=== PATIENT | female | born 1970 | race African-American/Black ===

== ENCOUNTER → 2016-09-09 | Day surgery (SDC) | payer OTHER ==
[~2016-09-09] MED LIST: ALPR2TAB5 PO; CETI10TA16 PO; FENTANYL PF 100 MCG/2 ML VIAL. IV PRN; HALO10TA PO; HYDR25CA75 PO; HYDR25TA9 PO; HYDROMORPHONE 2 MG/ML VIAL. IV PRN; IV RINGERS,LACTATED 1000ML 1,000 ML IV SCH; LIDOCAINE 1% 1 ML SYRINGE. ID PRN; MORPHINE SULFATE 2 MG/ML DISP.SYRIN. IV PRN; ONDANSETRON PF 4 MG/2 ML VIAL. IV PRN; PROCHLORPERAZINE 10 MG/2 ML VIAL. IV PRN; PROPOFOL 40 ML IV ONE
--- NOTE | 2016-09-09 10:24 | PDOC1 ---
History and Physical Date of Admission Date of Admission DATE: 09/09/16 TIME: 10:15 Source Source: Chart review, Patient History of Present Illness History of Present Illness 46 y/o female with dyspepsia. H/o H.pylori, treated x 2 with less than triple therapy. On PPI, only recently taking optimally. Degree of reflux issues not known, though 'scoped x 2 in the past. No PUD ever documented. S/p makenzie for stones. No liver or pancreatic history. Long-standing constipation. Currently on Amitiza. 2 colonoscopies in past historically negative. No GI family history. Past Medical History Cardiovascular: HTN Psych: Depression Past Surgical History Past Surgical History: Cholecystectomy, Tubal Ligation, Hysterectomy Family History Family History: Hypertension Social History Smoke: 1 pack per day ALCOHOL: none Drugs: None Current Medications Current Medications Current Medications Ondansetron HCl (Zofran) 4 mg PRN Q6HRS PRN IV Nausea; Start 09/09/16 at 07:00 ; Stop 09/10/16 at 06:59 Fentanyl Citrate (Fentanyl 2ml Vial) 25 mcg PRN Q5MIN PRN IV MILD PAIN; Start 09/09/16 at 07:00; Stop 09/10/16 at 06:59 Fentanyl Citrate (Fentanyl 2ml Vial) 50 mcg PRN Q5MIN PRN IV MODERATE PAIN; Start 09/09/16 at 07:00; Stop 09/10/16 at 06:59 Morphine Sulfate 1 mg 1 mg PRN Q10MIN PRN IV SEVERE PAIN; Start 09/09/16 at 07: 00; Stop 09/10/16 at 06:59 Lactated Ringer's (Iv Lactated Ringers) 1,000 ml @ 0 mls/hr Q0M IV ; Start at 07:00; Stop 09/09/16 at 18:59 Lidocaine HCl 2 ml 1X PRN PRN ID IV START; Start 09/09/16 at 07:00; Stop at 06:59 Hydromorphone HCl (Dilaudid) 0.5 mg PRN Q10MIN PRN IV SEVERE PAIN, Second choice; Start 09/09/16 at 07:00; Stop 09/10/16 at 06:59 Prochlorperazine Edisylate (Compazine) 5 mg PACU PRN PRN IV NAUSEA; Start 09/09 at 07:00; Stop 09/10/16 at 06:59 Allergies Allergies: Coded Allergies: No Known Drug Allergies (Unverified , 12/23/13) ROS Review of System 10-point review otherwise negative. Physical Exam General: Alert, Oriented X3, Cooperative, No acute distress Lungs: Clear to auscultation Heart: S1S2, RRR, no gallops, no murmurs Abdomen: Normal bowel sounds, Soft, No tenderness, No hepatosplenomegaly, No masses Rectal Exam: not examined Extremities: No cyanosis, No edema Skin: No significant lesion Neuro: Normal speech, Strength at 5/5 X4 ext, Normal tone, Sensation intact, Cranial nerves 3-12 NL, Reflexes 2+ Psych/Mental Status: Mental status NL, Mood NL VTE Prophylaxis Ordered VTE Prophylaxis Devices: No VTE Pharmacological Prophylaxi: No Assessment/Plan Assessment/Plan IMP: Dyspepsia/heartburn; history of H.pylori--gone? (after 2 rounds of treatment) PLAN: EGD/biopsies. ZAKIYA CHANEY MD Sep 09, 2016 10:23
--- NOTE | 2016-09-09 10:51 | PDOC4 ---
PROCEDURE Procedure EGD/biopsies Indication: dyspepsia/history of "refractory" H.pylori. Meds: per anesthesia Findings. E--healed reflux at 39cm. G--diffuse nodularity, some "geographic" in proximal antrum. Biopsies from prepyloric, greater curve antrum, fundus. D--Normal to second portion. Dejan. well. IMP: healed reflux, still symptoms Probable chronic gastritis--H.pylori status? REC: continue current regimen. await biopsies f/u 2 weeks. resume home meds, diet. ZAKIYA CHANEY MD Sep 09, 2016 10:51
[2016-09-09 11:20] VITALS: BP 122/70
--- NOTE | 2016-09-10 13:48 | PATHOLOGY ---
PATHOLOGY REPORT * * * * * * * * FINAL DIAGNOSIS: A. Gastric biopsy, prepyloric antrum: - Active chronic gastritis, moderate, with numerous Helicobacter organisms identified. B. Gastric biopsy, proximal antrum: - Active chronic gastritis, mild to moderate, with focal intestinal metaplasia and with focal Helicobacter organisms identified. C. Gastric biopsy, gastric fundus: - Superficial chronic gastritis, mild, with few Helicobacter organisms focally identified. COMMENT: Sections of the prepyloric antral biopsy show moderate active chronic inflammation. An immunoperoxidase stain for Helicobacter reveals numerous Helicobacter organisms. Sections of the proximal antral biopsy reveal gastric body mucosa showing a predominantly superficial, mild to moderate active chronic gastritis with focal intestinal metaplasia. An immunoperoxidase stain for Helicobacter focally reveals Helicobacter organisms. Sections of the gastric fundus biopsy reveal gastric body mucosa showing mild superficial chronic inflammation. An immunoperoxidase stain for Helicobacter focally reveals a few Helicobacter organisms. There is no evidence of malignancy. (JPM:mgeugene; d/t: 09/10/16) Special Stain Performed: Immunoperoxidase stains for Helicobacter (A1, B1, C1) REPORT ELECTRONICALLY SIGNED BY: Nickolas Jones M.D. DATE/TIME: 09/10/2016 13:47 * * * * * * * * GROSS PATHOLOGY: A. Received in formalin labeled "Lance Fuel, prepyloric antrum biopsy," are two segments of yang soft tissue measuring 0.6 x 0.4 x 0.1 cm in aggregate dimensions and ranging from 0.4 to 0.6 cm in maximum dimension. The specimen is submitted entirely in cassette A1. B. Received in formalin labeled "Lance Fuel, proximal biopsy of antrum," are two segments of yang soft tissue measuring 0.6 x 0.6 x 0.1 cm in aggregate dimensions and ranging from 0.3 to 0.6 cm in maximum dimension. The specimen is submitted entirely in cassette B1. C. Received in formalin labeled "Lance Fuel, biopsy of fundus," is a segment of yang soft tissue measuring 0.3 cm in maximum dimension. The specimen is submitted entirely in cassette C1. (CAA; 09/09/2016) INITIAL CPT CODE(S): A; 18054, 70668 B; 51518, 85270 C; 54606, 84037 Professional services performed [place] [facility] [place] [address] Technical services performed by [facility] at [address] [place] [address], [address], [place] [address]. SPECIMEN(S) RECEIVED: A.Pre-pyloric antrum biopsy B.Proximal biopsy of antrum C.Biopsy of fundus CLINICAL HISTORY: History of H. Pylori, r/o H. Pylori PATIENT: LANCE MILLER /AGE: 1206/08/1970 (Age: 46) PATIENT #: [id number] ALT CASE #: SPECIMEN COLLECTION DATE: 09/09/2016 SPECIMEN RECEIVED DATE: 09/09/2016 [facility] - [address] [place] [address] - PHONE: [phone] * * * END OF REPORT * * *
== END | disposition home or self-care (01) ==
LOC: ENDOS 10:13
PROVIDERS: ATTEND Internal Medicine Gastroenterology
DX: K21.0 Gastro-esophageal reflux disease with esophagitis (principal); K30 Functional dyspepsia; B96.81 Helicobacter pylori [H. pylori] as the cause of diseases classified elsewhere; E66.9 Obesity, unspecified; Z90.710 Acquired absence of both cervix and uterus; Z98.51 Tubal ligation status; Z90.721 Acquired absence of ovaries, unilateral
CPT/HCPCS: 43239; 88305; 88342; J2704; G0641

== ENCOUNTER 2017-01-19 21:02 | Emergency (ER) | payer OTHER ==
[~2017-01-19] VITALS: Ht 172.7 cm; Wt 108.9 kg
[~2017-01-19 21:02] MED LIST changes: -FENTANYL PF 100 MCG/2 ML VIAL. IV PRN; -HYDROMORPHONE 2 MG/ML VIAL. IV PRN; -IV RINGERS,LACTATED 1000ML 1,000 ML IV SCH; -LIDOCAINE 1% 1 ML SYRINGE. ID PRN; -MORPHINE SULFATE 2 MG/ML DISP.SYRIN. IV PRN; -ONDANSETRON PF 4 MG/2 ML VIAL. IV PRN; -PROCHLORPERAZINE 10 MG/2 ML VIAL. IV PRN; -PROPOFOL 40 ML IV ONE
[2017-01-19 22:57] VITALS: BP 138/78
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
--- NOTE | 2017-01-20 07:34 | RAD ---
KNEE LEFT 3V Clinical Indication: trauma Comparison: None. Findings: No acute fracture or malalignment. Likely prior ACL repair. Mild medial and patellofemoral compartment arthrosis. Bony mineralization is normal for the patient's age. IMPRESSION: 1. No acute fracture or malalignment. 2. Likely prior ACL repair. 3. Mild medial and patellofemoral compartment arthrosis.
== END 2017-01-19 23:10 | disposition home or self-care (01) ==
LOC: ER 21:02
DX: S39.012A Strain of muscle, fascia and tendon of lower back, initial encounter (principal); M25.562 Pain in left knee; F32.9 Major depressive disorder, single episode, unspecified; F41.9 Anxiety disorder, unspecified; I10 Essential (primary) hypertension; Z90.49 Acquired absence of other specified parts of digestive tract; Z90.710 Acquired absence of both cervix and uterus; Z98.51 Tubal ligation status; V48.6XXA Car passenger injured in noncollision transport accident in traffic accident, initial encounter; Y93.89 Activity, other specified; Y92.89 Other specified places as the place of occurrence of the external cause; Y99.8 Other external cause status
CPT/HCPCS: 73562; 81025; 99284

== ENCOUNTER → 2017-01-30 | Outpatient (CLI) | payer OTHER ==
[2017-01-19 22:57] VITALS: BP 138/78
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
== END | disposition home or self-care (01) ==
LOC: KCIC MRI 08:28
PROVIDERS: ATTEND Orthopaedic Surgery
DX: M17.12 Unilateral primary osteoarthritis, left knee (principal); M71.22 Synovial cyst of popliteal space [Baker], left knee; V29.9XXD Motorcycle rider (driver) (passenger) injured in unspecified traffic accident, subsequent encounter
CPT/HCPCS: 73721

== ENCOUNTER → 2017-06-03 | Outpatient (CLI) | payer OTHER ==
--- NOTE | 2017-06-04 08:38 | KCIC ---
Bilateral diagnostic digital mammograms: Reason for examination: Diffuse cystic mastopathy. Comparison is made to previous study dated 03/20/2016. Interpretation was made with the benefit of CAD. The skin and nipples show no abnormalities. No abnormal axillary lymph nodes are seen. The breast parenchyma is heterogeneously dense. (Breast density: Category C) There continues to be some subtle nodularity around the 11:00 B position of the left breast which is slightly less prominent. There is also suggestion of a small nodular density seen inferiorly on the oblique projection. This is fairly well-circumscribed probably benign. In the right breast there continues to be some small focus of nodularity in the right cc view probably on the 2:00 position. There is a small nodule consistent with a small intramammary lymph noted 10:00 B position. There are scattered calcifications again seen. Biopsy clip remains present on the left. Impression: Continued presence of some nodularity at the 11:00 B position which is less prominent. Small nodular densities which may represent cysts. Ultrasound to follow. Your patient's mammogram demonstrates that she has dense breast tissue (breast density category C or D), which could hide abnormalities, and if she has other risk factors for breast cancer that have been identified, she might benefit from supplemental screening tests that may be suggested by you as her ordering physician. Dense breast tissue, in and of itself, is a relatively common condition. Therefore, this information is not provided to cause undue concern, but rather to raise your awareness and to promote discussion with your patient regarding the presence of other risk factors, in addition to dense breast tissue. Your patient's mammography results will be sent to her. BI-RADS Category 0: Incomplete. Ultrasound to follow. Bilateral breast ultrasound: Bilateral whole breast ultrasound including evaluation of all 4 quadrants and the retroareolar and axillary regions of both breasts was performed. In the right breast at the 12:30 position 3.5 cm from the nipple, there is a small hypoechoic circumscribed lesion measures 6.2 mm in greatest dimension lying in parallel orientation consistent some fibrocystic change. In the 2:00 position 5 cm from the nipple, there is a hypoechoic circumscribed lesion measuring 3.3 mm in greatest dimension also possibly represents a fibrocystic change or small fibroadenoma. No suspicious lesions are seen. No abnormal appearing lymph nodes are seen in the axilla. In the left breast, there is a small hypoechoic fibrocystic type lesion at the 10:00 position 5 cm from the nipple measuring 1.4 cm in greatest dimension. No other cystic or solid nodules are seen. No abnormal appearing lymph nodes are seen in the axilla. IMPRESSION: Benign-appearing hypoechoic lesions consistent with fibrocystic type changes or possible fibroadenoma. No suspicious lesion seen. Recommend 6 month follow-up ultrasound. BI-RADS Category 3: Probably Benign. "Our facility is accredited by the [employer] Mammography Program." This patient's information has been entered into a reminder system for the patient to be notified with the results of her examination and a target date for the next mammogram. Electronically signed by: Kizzy Clark MD (06/04/2017 8:35 AM) [id number]
== END | disposition home or self-care (01) ==
LOC: KCIC MAMMO 09:19
PROVIDERS: ATTEND Family Medicine
DX: N60.12 Diffuse cystic mastopathy of left breast (principal); R92.1 Mammographic calcification found on diagnostic imaging of breast; R92.2 Inconclusive mammogram; N63.10 Unspecified lump in the right breast, unspecified quadrant; N63.20 Unspecified lump in the left breast, unspecified quadrant; I25.10 Atherosclerotic heart disease of native coronary artery without angina pectoris
CPT/HCPCS: 76641; G0204; 77066

== ENCOUNTER → 2017-08-31 | Outpatient (CLI) | payer OTHER | END | disposition home or self-care (01) | LOC: KCIC 14:26 | DX: M25.811 Other specified joint disorders, right shoulder (principal); M25.511 Pain in right shoulder | CPT/HCPCS: 73030 ==

== ENCOUNTER → 2017-09-02 | Outpatient (CLI) | payer OTHER | END | disposition home or self-care (01) | LOC: KCIC 08:23 | DX: S83.411A Sprain of medial collateral ligament of right knee, initial encounter (principal); X58.XXXA Exposure to other specified factors, initial encounter; Y93.89 Activity, other specified; Y92.89 Other specified places as the place of occurrence of the external cause; Y99.8 Other external cause status | CPT/HCPCS: 73562 ==

== ENCOUNTER → 2017-09-10 | Outpatient (CLI) | payer OTHER | END | disposition home or self-care (01) | LOC: RAD 13:55 | DX: M54.12 Radiculopathy, cervical region (principal); M25.511 Pain in right shoulder; M77.8 Other enthesopathies, not elsewhere classified | CPT/HCPCS: 72050 ==

== ENCOUNTER → 2017-09-24 | Outpatient (CLI) | payer OTHER | END | disposition home or self-care (01) | LOC: MRI 07:37 | DX: M22.41 Chondromalacia patellae, right knee (principal); M54.2 Cervicalgia | CPT/HCPCS: 73721 ==

== ENCOUNTER → 2017-12-07 | Outpatient (CLI) | payer OTHER | END | disposition home or self-care (01) | LOC: US 14:26 | DX: N60.12 Diffuse cystic mastopathy of left breast (principal) | CPT/HCPCS: 76641 ==

== ENCOUNTER → 2018-03-23 | Outpatient (CLI) | payer OTHER ==
[2017-11-05 08:25] VITALS: BP 126/80
--- NOTE | 2018-03-23 14:05 | KCIC ---
MR of the right shoulder Indication: Right shoulder pain for 2 years. Technique: Standard multiplanar sequences are obtained. Findings: Artifact: No significant image degradation. Acromioclavicular joint: Mildly degenerative. Rotator cuff: * Supraspinatus-infraspinatus tendon: Diffuse tendinosis. Partial-thickness bursal surface tear of the anterior tendon measures 8 mm AP diameter by 4 mm wide. About 50% deep. Smaller more superficial undersurface tear of the supraspinatus tendon slightly more posterior than this. No full-thickness tear or complete rupture. Small cyst dissects along the posterior supraspinatus muscle. * Subscapularis tendon: Intact * Muscle bulk: Mild atrophy * Subacromial subdeltoid bursa: Small effusion. Fluid: No significant glenohumeral effusion. Glenohumeral cartilage: No acute defect or advanced DJD. Labrum: No evidence of labral detachment. Biceps tendon: Intact Bones: No lesion or acute fracture. Soft tissue: No acute findings. Impression:Partial-thickness tears of the bursal surface and articular surface of the supraspinatus tendon. No full-thickness rupture or retraction. Electronically signed by: Jj Patel MD (03/23/2018 2:02 PM) [facility]
== END | disposition home or self-care (01) ==
LOC: KCIC MRI 12:10
PROVIDERS: ATTEND Orthopaedic Surgery
DX: M75.101 Unspecified rotator cuff tear or rupture of right shoulder, not specified as traumatic (principal); M25.411 Effusion, right shoulder; M62.511 Muscle wasting and atrophy, not elsewhere classified, right shoulder
CPT/HCPCS: 73221

== ENCOUNTER 2018-05-10 18:52 | Emergency (ER) | payer OTHER ==
[~2018-05-10] VITALS: Ht 172.7 cm; Wt 115.2 kg
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
[2018-05-10 20:51] VITALS: BP 145/79
== END 2018-05-10 20:50 | disposition home or self-care (01) ==
LOC: ER 18:52
DX: M25.511 Pain in right shoulder (principal); F41.9 Anxiety disorder, unspecified; F32.9 Major depressive disorder, single episode, unspecified; I10 Essential (primary) hypertension; Z90.49 Acquired absence of other specified parts of digestive tract; Z90.710 Acquired absence of both cervix and uterus; Z98.51 Tubal ligation status
CPT/HCPCS: 71046; 73030; 99284

== ENCOUNTER → 2018-05-25 | Outpatient (CLI) | payer OTHER ==
[2018-05-10 20:51] VITALS: BP 145/79
[~2018-05-25] MED LIST changes: +HYDR-2145 PO; -HYDR25TA9 PO
--- NOTE | 2018-05-25 15:48 | KCIC ---
THYROID ULTRASOUND History: Multinodular goiter. Comparison: Thyroid ultrasound, April 09, 2016. Technique: Multiple grayscale and color Doppler images of the thyroid gland were obtained. Findings: Measurements in length, AP (height), and transverse (width), respectively, unless otherwise stated. The right thyroid lobe measures 6 x 1.8 x 1.5 cm. 4 mm hypoechoic nodule in the mid right thyroid lobe is stable. The isthmus measures 2 mm. The left thyroid lobe measures 5.3 x 1.9 x 1.9 cm. There is an 8 mm cyst in the mid left thyroid lobe, unchanged. There is a second adjacent 6 mm cyst just lateral, not previously seen. ACR Thyroid Imaging, Reporting And Data System (TI-RADS): White Paper Of The ACR TI-RADS Committee. Journal of the [employer], volume 14, issue 5, pages 587-595 (October 2016). IMPRESSION: No suspicious thyroid nodule. No further follow-up is necessarily required. Electronically signed by: Kel Mccord MD (05/25/2018 3:45 PM) [id number]
== END | disposition home or self-care (01) ==
LOC: KCIC US 09:49
PROVIDERS: ATTEND Family Medicine
DX: E04.2 Nontoxic multinodular goiter (principal)
CPT/HCPCS: 76536

== ENCOUNTER → 2019-01-13 | Outpatient (CLI) | payer OTHER ==
--- NOTE | 2019-01-13 10:20 | KCIC ---
BILATERAL DIAGNOSTIC MAMMOGRAPHY AND BREAST ULTRASOUND History: Six-month follow-up. Fibrocystic disease of breast. Diffuse cystic mastopathy. Comparison: Bilateral mammogram 06/03/2017. Bilateral breast ultrasound December 07, 2017. Technique: Bilateral digital mammogram views were obtained. Findings: Breast Tissue Density C : The breasts are heterogeneously dense, which may obscure small masses. There are 2 biopsy clips in the left breast. One of the clips is adjacent to microcalcifications that are stable. There are scattered benign calcifications bilaterally. There is a mass in the upper inner right breast at mid depth that has increased in size. There are no suspicious microcalcifications or architectural distortion. Real-time ultrasound imaging of the right and left breast is performed. Right: There are complicated cysts at the 12:30 o'clock position 5 cm from the nipple that have increased in size, largest now measuring 1.6 x 0.7 cm. There are elongated cysts versus ductal ectasia at the 2:00 position 5 cm from the nipple, increased in size from prior study. This may account for the mammogram finding. Not previously imaged at the 8:30 o'clock position 6 cm from the nipple, there is a heterogeneous hyperechoic mass measuring 1.1 x 0.6 cm. On some images this partially blends in with adjacent linear echogenic stroma. No abnormal lymph node in the right axilla. Left: Probable complicated cyst 10:00 position 5 cm from the nipple is stable. No abnormal axillary lymph node. IMPRESSION: 1. No mammographic evidence of malignancy. 2. There is a small hyperechoic mass in the right breast 8:30 o'clock position 6 cm from the nipple, not previously seen. Recommend right breast ultrasound follow-up in 3 months to reevaluate. 3. Benign-appearing cystic lesions of the right breast 12:30 o'clock position and 2:00 position have increased in size. BI-RADS category 3: Probably benign. The images were reviewed with computer-aided detection. Patient information is entered into the reminder system with a target due date for the next screening mammogram. Mammography is the most sensitive method for finding small breast cancers, but it does not detect them all and is not a substitute for careful clinical examination. A negative mammogram does not negate a clinically suspicious finding and should not result in delay in biopsying a clinically suspicious abnormality. "Our facility is accredited by the [employer] Mammography Program." Electronically signed by: Kel Mccord MD (01/13/2019 10:17 AM) [id number]
--- NOTE | 2019-01-13 10:33 | KCIC ---
US SOFT TISSUE HEAD AND NECK CLINICAL INDICATION: Multinodular goiter. PROCEDURE: Transverse and longitudinal grayscale and color Doppler images of the thyroid were obtained. COMPARISON: 05/25/2018. FINDINGS: Right: The right thyroid lobe measures 5.9 x 1.7 x 2.0 cm. Oval-shaped hypoechoic nodule in the mid thyroid lobe measuring 0.4 x 0.3 x 0.2 cm. Another Hypoechoic well-circumscribed nodule in the mid thyroid lobe measures 0.4 x 0.2 x 0.3 cm. Isthmus: Measures 3 mm in thickness and is within normal limits. Left: The left thyroid lobe measures 4.9 x 1.7 x 1.7 cm. Hypoechoic oval-shaped nodule in the mid thyroid lobe measures 0.7 x 0.4 x 0.4 cm. Another hypoechoic nodule adjacent to the above-mentioned nodule measuring 0.3 x 0.3 x 0.7 cm. IMPRESSION: Bilateral subcentimeter thyroid nodules as described above. Follow-up recommended. Electronically signed by: Ryan Gibson DO (01/13/2019 10:30 AM) [facility]
== END | disposition home or self-care (01) ==
LOC: KCIC MAMMO 08:32
PROVIDERS: ATTEND Family Medicine
DX: E04.2 Nontoxic multinodular goiter (principal); N64.89 Other specified disorders of breast; N63.12 Unspecified lump in the right breast, upper inner quadrant
CPT/HCPCS: 76536; 76641; 77066

== ENCOUNTER → 2019-01-13 | Outpatient (CLI) | payer OTHER ==
--- NOTE | 2019-01-13 14:54 | KCIC ---
Indication:Right hand pain for one day status post injury. TECHNIQUE: 3 views of right hand COMPARISON: None FINDINGS/ impression: No acute fracture or dislocation. No soft tissue abnormality. Electronically signed by: Ryan Gibson DO (01/13/2019 2:51 PM) [facility]
== END | disposition home or self-care (01) ==
LOC: KCIC 14:13
PROVIDERS: ATTEND Family Medicine
DX: S69.91XA Unspecified injury of right wrist, hand and finger(s), initial encounter (principal); X58.XXXA Exposure to other specified factors, initial encounter; Y93.89 Activity, other specified; Y92.89 Other specified places as the place of occurrence of the external cause; Y99.8 Other external cause status
CPT/HCPCS: 73130

== ENCOUNTER → 2019-01-13 | Outpatient (CLI) | payer OTHER ==
--- NOTE | 2019-01-13 12:39 | KCIC ---
Examination: MRI of the left knee without contrast. HISTORY: Left knee pain COMPARISON: 01/30/2017 TECHNIQUE: Multiplanar, multisequence MR imaging of the left knee was performed at contrast. FINDINGS: The reconstructed anterior cruciate ligament appears intact. There is small fluid signal identified within the tibial tunnel could be a small tibial tunnel cyst again identified. The tibial tunnel and may be slightly anterior to the intercondylar roof on the sagittal images however evaluation is limited due to positioning. There is mild increased signal identified in the anterior cruciate ligament fibers by intercondylar roof region. There is blunting of the body and posterior horn of the medial meniscus likely prior meniscectomy changes. The visualized lateral meniscus grossly appears intact. Mild superficial fraying of cartilage identified in the medial, lateral, patellofemoral compartments. The medial collateral ligament is intact. The lateral ligament complex including the fibular collateral ligament, biceps femoris tendon, popliteus tendon appear intact Mild generalized loss identified in the medial, lateral compartment femoral compartments. Small knee joint effusion. IMPRESSION: 1. Mild increased signal identified in the reconstructed anterior cruciate ligament by the intercondylar notch with slightly anterior position of the tibial tunnel, correlate for impingement of the reconstructed anterior cruciate ligament. Small tibial tunnel cyst is again identified. 2. Prior meniscectomy change medial meniscus. Electronically signed by: Blayne Hoyt MD (01/13/2019 12:37 PM) [id number]
== END | disposition home or self-care (01) ==
LOC: KCIC MRI 08:04
PROVIDERS: ATTEND Orthopaedic Surgery
DX: M85.662 Other cyst of bone, left lower leg (principal); M25.462 Effusion, left knee; Z98.890 Other specified postprocedural states
CPT/HCPCS: 73721

== ENCOUNTER → 2019-04-18 | Outpatient (CLI) | payer MEDICAID ==
--- NOTE | 2019-04-26 16:48 | KCIC ---
Right breast ultrasound: Reason for examination: Follow-up nodule. Comparison is made to previous studies dated 01/13/2019. Ultrasound examination was performed in the area of previous concern at the 8:30 position and the axilla. There continues to be a somewhat heterogeneous nodule with no abnormal vascularity at the 8:30 position 6 cm from the nipple measuring 1.2 cm in size which does not appear to show significant interval change. This may represent an intramammary lymph node or possibly a small hamartoma. No suspicious-appearing nodules are seen. No abnormal appearing lymph nodes are seen in the axilla. IMPRESSION: 1.2 cm nodule persists at the 8:30 position. This is probably benign and may represent an intramammary lymph node or possibly a small hamartoma. Recommend continued follow-up with right breast ultrasound in 3 months. BI-RADS Category 3: Probably Benign. "Our facility is accredited by the [employer] Mammography Program." This patient's information has been entered into a reminder system for the patient to be notified with the results of her examination and a target date for the next mammogram. Electronically signed by: Kizzy Clark MD (04/26/2019 4:45 PM) [id number]
== END | disposition home or self-care (01) ==
LOC: KCIC US 12:47
PROVIDERS: ATTEND Family Medicine
DX: N63.13 Unspecified lump in the right breast, lower outer quadrant (principal); N60.12 Diffuse cystic mastopathy of left breast
CPT/HCPCS: 76641

== ENCOUNTER → 2019-08-24 | Outpatient (CLI) | payer MEDICAID ==
[2019-08-24 15:17] LABS: BASO # 0.1 x10^3/uL (0.0-0.2); BASO % 1 % (0-3); EOS # 0.2 x10^3/uL (0.0-0.7); EOS % 1 % (0-3); HEMATOCRIT 40.7 % (36.0-47.0); HEMOGLOBIN 13.7 g/dL (12.0-15.5); LYMPH % 34 % (24-48); MEAN CORPUSCULAR HEMOGLOBIN 29 pg (25-35); MEAN CORPUSCULAR HGB CONC 34 g/dL (31-37); MEAN CORPUSCULAR VOLUME 87 fL (79-100); MONO # 0.6 x10^3/uL (0.0-1.1); MONO % 5 % (0-9); NEUT # 6.9 x10^3/uL (1.8-7.7); NEUT % 59 % (31-73); PLATELET COUNT 225 x10^3/uL (140-400); RED BLOOD COUNT 4.68 x10^6/uL (3.50-5.40); RED CELL DISTRIBUTION WIDTH 13.7 % (11.5-14.5); WHITE BLOOD COUNT 11.7 x10^3/uL (4.0-11.0)
[2019-08-24 15:34] LABS: PROTHROMBIN TIME PATIENT 13.5 SEC (11.7-14.0)
[2019-08-24 15:46] LABS: ALBUMIN 3.3 g/dL (3.4-5.0); ALBUMIN/GLOBULIN RATIO 0.7 (1.0-1.7); CALCIUM 8.6 mg/dL (8.5-10.1); CREATININE 0.9 mg/dL (0.6-1.0); DIRECT BILIRUBIN 0.1 mg/dL (0.0-0.2); GFR 80.2; POTASSIUM 3.2 mmol/L (3.5-5.1); TOTAL BILIRUBIN 0.4 mg/dL (0.2-1.0); TOTAL PROTEIN 7.8 g/dL (6.4-8.2)
[2019-08-24 15:49] LABS: CHOLESTEROL/HDL RATIO 3.2
[2019-08-25 07:14] LABS: HEMOGLOBIN A1C 5.7 % (4.8-5.6); THYROXINE 8.2 ug/dL (4.5-12.0)
== END | disposition home or self-care (01) ==
LOC: LAB 14:00
PROVIDERS: ATTEND Surgery
DX: G62.9 Polyneuropathy, unspecified (principal)
CPT/HCPCS: 36415; 80053; 80061; 80076; 83036; 84436; 84443; 84480; 85025; 85610

== ENCOUNTER → 2019-09-20 | Outpatient (CLI) | payer MEDICAID ==
--- NOTE | 2019-09-20 13:26 | RAD ---
Gastric Emptying Study Indication: Nausea for 2 years Comparison: None Procedure: Serial static images are obtained over the stomach following oral administration of 99 M technetium sulfur colloid in a solid meal, and percentages of geometric mean retained uptake were calculated at intervals post ingestion. Findings: The stomach empties normally into the small bowel without evidence of reflux in the area the esophagus. The percentage of retained radiotracer material is as follows: 1 hour: 37% (normal range is 34.8 to 91%). 2 hour: 12% (normal range is 2.6 to 60%). 3 hour: 1% (normal range is 0.5 to 28%). 4 hour: 0% (normal range is 0 to 10%). The calculated gastric emptying T1/2 is 55 minutes. Normal reference is 60 minutes +/- 30. Impression: Normal gastric emptying study.. Electronically signed by: Guzman Hooper MD (09/20/2019 1:23 PM) [id number]
== END | disposition home or self-care (01) ==
LOC: NM 08:10
PROVIDERS: ATTEND Internal Medicine Gastroenterology
DX: R11.0 Nausea (principal)
CPT/HCPCS: 78264; A9541

== ENCOUNTER → 2019-12-05 | Outpatient (CLI) | payer MEDICAID ==
[~2019-12-05] MED LIST changes: +IOHEXOL 240 MG/ML 50ML VIAL. PO ONE; +IOHEXOL 300 MG/ML 100ML VIAL. IV ONE
--- NOTE | 2019-12-05 11:36 | RAD ---
CT scan of the abdomen and pelvis with contrast 12/05/2019 CLINICAL HISTORY: Abdominal pain and weight loss. TECHNIQUE: After the oral and intravenous administration of contrast, contiguous, 5 mm axial sections were obtained through the abdomen and pelvis. 75 cc of Omnipaque 300 were administered intravenously during this examination. One or more of the following individualized dose reduction techniques were utilized for this study: 1. Automated exposure control. 2. Adjustment of the mA and/or kV according to patient size. 3. Use of iterative reconstruction technique. FINDINGS: Images through the lung bases demonstrate minimal dependent subsegmental atelectasis bilaterally. The liver, spleen, pancreas, adrenal glands and kidneys are within normal limits. The abdominal aorta tapers normally. Surgical clips are seen within the gallbladder fossa consistent with a cholecystectomy. No free fluid or free air is seen within the abdomen. Air and stool seen throughout the colon. There is no evidence of bowel obstruction. The appendix is well-visualized and is within normal limits. No retroperitoneal lymphadenopathy is seen. Images through the pelvis demonstrate the urinary bladder to be contracted. Calcifications are seen within the pelvis consistent with phleboliths. The patient appears to be post hysterectomy. No adnexal mass is seen. No free fluid is noted. No pelvic or inguinal lymphadenopathy is noted. IMPRESSION: No acute abnormality is seen. Electronically signed by: Mckinley Liu MD (12/05/2019 11:33 AM) [id number]
== END | disposition home or self-care (01) ==
LOC: CT 08:24
PROVIDERS: ATTEND Internal Medicine Gastroenterology
DX: N32.89 Other specified disorders of bladder (principal); R63.4 Abnormal weight loss
CPT/HCPCS: 74177; Q9966; Q9967

== ENCOUNTER → 2020-02-13 | Outpatient (CLI) | payer MEDICAID ==
[~2020-02-13] MED LIST changes: -IOHEXOL 240 MG/ML 50ML VIAL. PO ONE; -IOHEXOL 300 MG/ML 100ML VIAL. IV ONE
[2020-02-13 08:22] LABS: ALBUMIN 3.2 g/dL (3.4-5.0); ALBUMIN/GLOBULIN RATIO 0.7 (1.0-1.7); CREATININE 0.8 mg/dL (0.6-1.0); GFR 91.9; POTASSIUM 3.6 mmol/L (3.5-5.1); TOTAL BILIRUBIN 0.3 mg/dL (0.2-1.0); TOTAL PROTEIN 7.9 g/dL (6.4-8.2)
[2020-02-13 08:25] LABS: CHOLESTEROL/HDL RATIO 3.1
[2020-02-13 08:34] LABS: FREE T4 1.01 ng/dL (0.76-1.46); THYROID STIM HORMONE (TSH) 1.102 uIU/mL (0.358-3.74)
[2020-02-13 08:44] LABS: BASO # 0.1 x10^3/uL (0.0-0.2); BASO % 1 % (0-3); EOS # 0.2 x10^3/uL (0.0-0.7); EOS % 2 % (0-3); HEMATOCRIT 41.4 % (36.0-47.0); HEMOGLOBIN 13.5 g/dL (12.0-15.5); LYMPH # 5.2 x10^3/uL (1.0-4.8); LYMPH % 39 % (24-48); MEAN CORPUSCULAR HEMOGLOBIN 29 pg (25-35); MEAN CORPUSCULAR HGB CONC 33 g/dL (31-37); MEAN CORPUSCULAR VOLUME 87 fL (79-100); MONO # 0.7 x10^3/uL (0.0-1.1); MONO % 5 % (0-9); NEUT # 7.2 x10^3/uL (1.8-7.7); NEUT % 54 % (31-73); PLATELET COUNT 221 x10^3/uL (140-400); RED BLOOD COUNT 4.74 x10^6/uL (3.50-5.40); RED CELL DISTRIBUTION WIDTH 13.4 % (11.5-14.5); WHITE BLOOD COUNT 13.4 x10^3/uL (4.0-11.0)
== END | disposition home or self-care (01) ==
LOC: LAB 07:36
PROVIDERS: ATTEND Family Medicine
DX: E04.2 Nontoxic multinodular goiter (principal); I10 Essential (primary) hypertension; D72.829 Elevated white blood cell count, unspecified; Z86.19 Personal history of other infectious and parasitic diseases
CPT/HCPCS: 36415; 80053; 80061; 84439; 84443; 85025

== ENCOUNTER → 2020-10-03 | Outpatient (CLI) | payer MEDICAID ==
--- NOTE | 2020-10-03 09:56 | KCIC ---
Bilateral diagnostic digital mammograms: Reason for examination: Diffuse cystic mastopathy with bilateral breast pain. Comparison is made to previous studies dated 01/13/2019 and 06/03/2017.. Interpretation was made with the benefit of CAD. The skin and nipples show no abnormalities. No abnormal axillary lymph nodes are seen. The breast par enchyma is heterogeneously dense. (Breast density: Category C) There are multiple small circumscribed nodules bilaterally. Ultrasound will follow. Scattered benign calcifications are again seen. Impression: Multiple small circumscribed lesions. Ultrasound to follow. Your patient's mammogram demonstrates that she has dense breast tissue (breast density category C or D), which could hide abnormalities, and if she has other risk factors for breast cancer that have bee n identified, she might benefit from supplemental screening tests that may be suggested by you as her ordering physician. Dense breast tissue, in and of itself, is a relatively common condition. Therefo re, this information is not provided to cause undue concern, but rather to raise your awareness and t o promote discussion with your patient regarding the presence of other risk factors, in addition to d ense breast tissue. Your patient's mammography results will be sent to her. BI-RADS Category 0: Incomplete. Needs additional imaging evaluation. Bilateral breast ultrasound: Bilateral whole breast ultrasound including evaluation of all 4 quadrants and the retroareolar and ax illary regions of both breasts was performed. The right breast shows multiple hypoechoic and anechoic lesions measuring up to 1.9 cm in size consis tent with benign cystic and fibrocystic lesions. No solid or suspicious-appearing nodules are seen. N o abnormal appearing lymph nodes are seen in the axilla. The left breast also shows multiple anechoic and hypoechoic lesions consistent with benign cystic and fibrocystic lesions measuring up to 1 cm in size. No solid suspicious-appearing nodules are seen. No abnormal appearing lymph nodes are seen in the left axilla. IMPRESSION: Benign cystic and fibrocystic lesions. No suspicious abnormality seen. Recommend reevaluation in 6 mo nths with bilateral breast ultrasound. BI-RADS Category 3: Probably Benign. "Our facility is accredited by the [employer] Mammography Program." This patient's information has been entered into a reminder system for the patient to be notified wit h the results of her examination and a target date for the next mammogram. This patient's information has been entered into a reminder system for the patient to be notified wit h the results of her examination and a target date for the next mammogram. Electronically signed by: Kizzy Clark MD (10/03/2020 9:54 AM) [email or web address]
== END ==
LOC: KCIC MAMMO 07:51
PROVIDERS: ATTEND Family Medicine
DX: N60.12 Diffuse cystic mastopathy of left breast (principal); N60.11 Diffuse cystic mastopathy of right breast
CPT/HCPCS: 76641; 77066

== ENCOUNTER → 2021-04-16 | Outpatient (CLI) | payer MEDICAID ==
--- NOTE | 2021-04-16 10:09 | KCIC ---
Bilateral breast ultrasound: Reason for examination: Follow-up nodules. Comparison is made to previous study dated 10/03/2020. Ultrasound examination was performed of the breasts and axilla bilaterally. In the right breast at the 12:00 position 6 cm from the nipple, there continues to be a 1.9 cm cystic nodule which is stable. At the 1:00 position 6 cm from the nipple, there is also a 1. Which is decre ased in size. At the 4:00 position 1 cm from the nipple, there continues to be a 8.1 mm fibrocystic l esion which has decreased in size. No suspicious nodules are seen. No abnormal appearing lymph nodes are seen in the right axilla. In the left breast, there continues to be a 7.2 mm hypoechoic fibrocystic lesion at the 12:00 positio n. There is a 1.5 cm hypoechoic circumscribed lesion in parallel orientation at the 1:00 position 4 c m from the nipple which has a fibroadenomatous appearance with some posterior acoustic enhancement. A t the 3:00 position 4 cm from the nipple, there continues to be a 6.9 mm hypoechoic fibrocystic type lesion. At the 11:00 position 4 cm from the nipple, there continues to be a 1.3 cm hypoechoic lesion in parallel orientation with a fibrocystic/fibroadenomatous appearance. No abnormal appearing lymph n odes are seen in the left axilla. IMPRESSION: Cystic lesions at the 12:00 and 1:00 positions of the right breast are stable. Fibrocystic lesion at the 4:00 position of the right breast is decreased in size. Continued presence of fibrocystic and fibroadenomatous type nodules in the left breast. Recommend con tinued 6 month follow-up with ultrasound. BI-RADS Category 3: Probably Benign. "Our facility is accredited by the [employer] Mammography Program." This patient's information has been entered into a reminder system for the patient to be notified wit h the results of her examination and a target date for the next mammogram. Electronically signed by: Kizzy Clark MD (04/16/2021 10:06 AM) [id number]
== END ==
LOC: KCIC US 08:20
PROVIDERS: ATTEND Family Medicine
DX: N60.12 Diffuse cystic mastopathy of left breast (principal); N60.01 Solitary cyst of right breast
CPT/HCPCS: 76641

== ENCOUNTER → 2021-04-23 | Outpatient (CLI) | payer MEDICAID ==
--- NOTE | 2021-04-23 14:31 | KCIC ---
Exam Date: 04/23/2021 8:00 AM MRI LEFT LOWER EXTREMITY JOINT WITHOUT Indication: Reason: LEFT KNEE PAIN / Spl. Instructions: Prev ACL recon yrs ago. / History: New fall. Medial and lateral knee pain with instability in recent weeks.. TECHNIQUE: Routine multiplanar MR imaging of the knee was performed without contrast. FINDINGS: Postoperative changes of ACL graft reconstruction are noted. The distal ACL graft at the joint line appears attenuated and indistinct suggesting a partial tear. The proximal to mid ACL graft appears i ntact. There is no evidence for arthrofibrosis. The body medial meniscus is significantly small in size with abnormal signal and morphology consisten t with complex tearing versus prior partial meniscectomy. There is a 9 x 6 x 15 mm dark signal focus inferior to the medial meniscus and adjacent to the medial tibial plateau suggestive of a sequestere d meniscal fragment. Degenerative signal is seen in the anterior horn of the lateral meniscus without discrete lateral men iscal tear. The posterior cruciate ligament, medial collateral ligament, and lateral collateral ligament complex are intact. Patellofemoral extensor mechanism and popliteus tendon are within normal limits. Tricompartment partial thickness chondral loss is seen. No full thickness chondral defects are ident ified. Bone marrow demonstrates benign signal on all sequences. No acute fracture is seen. Small t ricompartment osteophytes are noted. Physiologic joint fluid is present. There is no popliteal cyst. IMPRESSION: Postoperative changes of ACL graft reconstruction are noted. Indistinct and attenuated distal ACL gr aft suggests a partial tear. No evidence for arthrofibrosis. Complex tearing versus prior partial meniscectomy involving the medial meniscus. Dark signal focus i nferior to the body of the medial meniscus is suggestive of a sequestered meniscal fragment. Electronically signed by: Geo Emerson MD (04/23/2021 2:28 PM) [id number]
== END ==
LOC: KCIC MRI 07:53
PROVIDERS: ATTEND Orthopaedic Surgery
DX: M25.762 Osteophyte, left knee (principal); M25.462 Effusion, left knee; Z98.890 Other specified postprocedural states
CPT/HCPCS: 73721

== ENCOUNTER → 2021-05-20 | Outpatient (CLI) | payer MEDICAID ==
--- NOTE | 2021-05-20 11:08 | KCIC ---
Examination: MRI of the right knee without contrast HISTORY: History of right knee pain, prior history of surgery could be posterior medial and lateral k nee. COMPARISON: None TECHNIQUE: Multiplanar, multisequence MR imaging of the right knee was performed without contrast Findings: The anterior cruciate ligament, posterior cruciate ligament appear intact.There is a diminutive appea william of the body of the medial meniscus could be prior surgery or retear. Lateral meniscus appears i ntact. The medial collateral ligament appears intact. Lateral collateral ligament complex appearing t he fibular collateral ligament, biceps femoris, popliteus tendon appears intact. The extensor mechani sm is intact. Small knee joint effusion. The medial, lateral retinaculum appears intact. Moderate size leaking popliteal cyst identified. Ther e is deep fissuring of cartilage identified in the medial, lateral, patellofemoral compartments. Mode rate joint space loss medial, lateral compartment femoral compartments. IMPRESSION: 1. Diminutive appearance of the body of the medial meniscus could be prior surgery or retear. 2. Moderate size leaking popliteal cyst. 3. Small knee joint effusion. 4. Moderate joint space loss identified in the medial, lateral, patellofemoral compartments. Electronically signed by: Blayne Hoyt MD (05/20/2021 11:06 AM) [id number]
== END ==
LOC: KCIC MRI 09:37
PROVIDERS: ATTEND Orthopaedic Surgery
DX: M25.461 Effusion, right knee (principal); M66.0 Rupture of popliteal cyst; M25.861 Other specified joint disorders, right knee
CPT/HCPCS: 73721

== ENCOUNTER → 2021-06-27 | Outpatient (CLI) | payer MEDICAID ==
[~2021-06-27] MED LIST changes: +HYDR-2761 PO
== END ==
LOC: LAB 10:50
PROVIDERS: ATTEND Neurological Surgery
DX: Z01.812 Encounter for preprocedural laboratory examination (principal); Z20.822 Contact with and (suspected) exposure to COVID-19; S83.241D Other tear of medial meniscus, current injury, right knee, subsequent encounter; X58.XXXD Exposure to other specified factors, subsequent encounter
CPT/HCPCS: U0003; U0005

== ENCOUNTER 2021-07-01 06:10 | Day surgery (SDC) | payer MEDICAID ==
[~2021-07-01] VITALS: Ht 167.6 cm; Wt 121.0 kg
[~2021-07-01 06:10] MED LIST changes: -HYDR-2761 PO; +HYDROmorphone 2 MG/ML INJ. IVP PRN; +IV RINGERS,LACTATED 1000ML 1,000 ML IV SCH; +PROCHLORPERAZINE 10 MG/2 ML VIAL. IVP PRN; +ceFAZolin SODIUM 3 GM in IV DEXTROSE 5% 100ML 100 ML IV PRN; +fentaNYL PF VIAL 100 MCG/2 ML VIAL IVP PRN
[2021-07-01 06:27] VITALS: BP 119/66
[2021-07-01] MEDS ORDERED: DEXAMETHASONE SOD PHOS 4 MG/ML VIAL ONE ×3 (06:59→07:54)
[2021-07-01] MEDS ORDERED: fentaNYL PF VIAL 100 MCG/2 ML VIAL ONE (06:59)
[2021-07-01] MEDS ORDERED: ONDANSETRON PF 4 MG/2 ML VIAL. ONE ×2 (06:59→07:37)
[2021-07-01] MEDS ORDERED: PROPOFOL 10 MG/ML (20ML) VIAL. IV ONE (06:59)
[2021-07-01] MEDS ORDERED: LIDOCAINE 1% PF 5 ML VIAL. ONE (07:01)
[2021-07-01] MEDS ORDERED: SUCCINYLCHOLINE 200 MG/10 ML VIAL. ONE (07:06)
[2021-07-01] MEDS ORDERED: GLYCOPYRROLATE 1 MG/5 ML VIAL. ONE (07:07)
[2021-07-01] MEDS ORDERED: BUPIVACAINE-EPI 0.25% 30 ML VIAL KIT. ONE (07:14)
[2021-07-01] MEDS ORDERED: HYDR-2761 PO ×2 (07:38→09:45)
--- NOTE | 2021-07-01 08:04 | DISCH ---
DISCHARGE INSTRUCTIONS Condition on Discharge Condition on Discharge: Stable Activity After Discharge Activity Instructions for Disc: Activity as tolerated, Avoid exertion Driving Instructions after Dis: Do not drive today Weight Bearing Status after Di: Full weight bearing Wound Incision Care Wound/Incision Care: Ice to area for comfort, Keep wound/cast CDI, Keep wound elevated Other wound/incision instructi: May change dressings postoperative day #3 Follow-Up Follow up with: 10 to 14 days SARINA WERNER Jr. DO Jul 01, 2021 08:04
--- NOTE | 2021-07-01 08:26 | OP ---
DATE OF SURGERY: 07/01/2021 PREOPERATIVE DIAGNOSES: Medial meniscal tear and degenerative joint disease, right knee. POSTOPERATIVE DIAGNOSES: Medial meniscal tear and degenerative joint disease, right knee. PROCEDURE: Right knee arthroscopy with partial medial meniscectomy joint debridement. SURGEON: Robinson Menjivar Jr, DO PHARMACY ASSISTANT: Mj Sahni. ANESTHESIA: General. COMPLICATIONS: None. ESTIMATED BLOOD LOSS: 20 mL. DESCRIPTION OF PROCEDURE: The patient was taken to the operative suite, given a general anesthetic. Right lower extremity was placed in the knee stratton, prepped and draped in a sterile fashion. Inferomedial and inferolateral portals were established. Knee was insufflated with saline. Visualization of the patellofemoral joint, noted this to be intact along the area of the femoral sulcus. The chondral surface of the patella along the middle facet as well as the lateral facet had some grade 2 and 3 changes, no grade 4 changes were noted; however, these were unstable. Therefore, debridement was undertaken of the chondral surfaces of the undersurface of the patella. This was debrided back. This was noted to be very stable. Scope was then taken into the medial compartment. There was noted to be grade 2 and 3 changes in the medial femoral condyle from full extension all the way up to about 75-80 degrees of flexion. This was debrided back to stable tissue. There was also a meniscal tear, which was a recurrent tear along the posterior horn of the meniscus, but this was more towards the posterior one-half. Using a shaver, a partial medial meniscectomy was undertaken and this was debrided back to stable tissue. This was then thoroughly irrigated. No new problems were noted on this side of the joint. Tibial side was intact and softening only with some small fissuring, but no signs of significant changes. ACL and the PCL were probed and noted to be intact and stable. The lateral compartment had some fissuring and some fracturing of the tibial plateau area, but no abnormalities were noted such as deep grade 2 or 3 or 4. Femoral surface was completely intact throughout the arc of motion. This was then thoroughly irrigated. All instruments were then removed. Local was placed in the portal sites. A sterile dressing was applied after the wounds were reapproximated using 3-0 nylon. Sterile dressing was applied. The patient was then taken from the operative bed to the postoperative bed, taken to the PACU in stable condition. EWJ/MATT DR: Jennifer TID: [id number]
[2021-07-01] MEDS ORDERED: MORPHINE SULFATE 2 MG/ML INJ. ONE (08:37)
[2021-07-01] MEDS: MORPHINE SULFATE 2 MG/ML INJ. IVP PRN ×2 (08:39→08:52)
[2021-07-01] MEDS ORDERED: HYDROcodone/APAP 5/325MG 1 TAB TABLET PO ONE (08:45)
[2021-07-01] MEDS ORDERED: PROCHLORPERAZINE 10 MG/2 ML VIAL. ONE (08:55)
[2021-07-01 09:02] VITALS: BP 119/68
--- NOTE | 2021-07-01 09:44 | PDOC4 ---
OPERATIVE NOTE Date: Date: Jul 01, 2021 Pre-Op Diagnosis: Medial meniscal tear with degenerative joint disease right knee Post-Op Diagnosis: Same Procedure Performed: Right knee arthroscopy with partial medial meniscectomy joint debridement medial compartment Surgeon: Otto Anesthesia Type: General Blood Loss: 20 cc Specimans Obtained: None Findings: See dictation Complications: None SARINA WERNER Jr. DO Jul 01, 2021 09:44
--- NOTE | 2021-07-01 11:11 | PREOP HP ---
DATE OF SERVICE: 07/01/2021 BRIEF HISTORY: The patient is a 51-year-old female who is here today for right knee arthroscopy for a retear of the medial meniscus as well as degenerative changes of the medial compartment of that knee. She has had a previous knee arthroscopy, but currently has swelling and pain in the right knee, especially the medial compartment. No locking or instability episodes at this point. No new injuries at this point. REVIEW OF SYSTEMS: Unremarkable other than current orthopedic findings. PAST MEDICAL HISTORY: Hypertension. PAST SURGICAL HISTORY: Left knee arthroscopy, 09/19/2016, right shoulder arthroscopy, 04/16/2018, right knee arthroscopy 02/05/2018, left knee surgery again on 04/29/2019. FAMILY HISTORY: Unremarkable. SOCIAL HISTORY: The patient does use tobacco, 11 to 20 cigarettes per day. No alcohol use. MEDICATIONS: Alprazolam, cetirizine, hydrochlorothiazide, quetiapine, indomethacin, oxycodone, all written by her primary care physician, Dr. Cedillo. PHYSICAL EXAMINATION: She is 66 inches tall, 267 pounds. She has mild effusion today. Pain with palpation over the medial and lateral compartments, more medial than lateral. Positive Apley's test is very positive to the medial compartment. Mildly positive to the lateral compartment. There is no instability to varus, valgus or AP plane of the knee. Right knee range of motion is 0 up to 115 today, limited by pain. This was 5 degrees less than it was at her other examination with us. There is no atrophy or musculature and the distal neurovascular status is fully intact at this point. IMPRESSION: Degenerative joint disease with recurrent medial meniscal tear, right knee. PLAN: At this time, we have gone over the risks, complications as well as benefits and expectations of surgery, postoperative protocol and followup, need to proceed with this knee arthroscopy as soon as she is medically cleared and wishes to have that done. ANA LUISA GOODMAN: Jennifer TID: [id number]
== END 2021-07-01 09:39 | disposition home or self-care (01) ==
LOC: SURG 06:10
PROVIDERS: ATTEND Orthopaedic Surgery
DX: S83.241A Other tear of medial meniscus, current injury, right knee, initial encounter (principal); M17.11 Unilateral primary osteoarthritis, right knee; I10 Essential (primary) hypertension; E66.9 Obesity, unspecified; K21.9 Gastro-esophageal reflux disease without esophagitis; F41.9 Anxiety disorder, unspecified; F32.9 Major depressive disorder, single episode, unspecified; F17.210 Nicotine dependence, cigarettes, uncomplicated; Z90.710 Acquired absence of both cervix and uterus; Z98.51 Tubal ligation status; Z98.890 Other specified postprocedural states; Z79.899 Other long term (current) drug therapy; Z91.040 Latex allergy status; X58.XXXA Exposure to other specified factors, initial encounter; Y93.89 Activity, other specified; Y92.89 Other specified places as the place of occurrence of the external cause; Y99.8 Other external cause status
CPT/HCPCS: 29881; J0330; J0780; J1100; J2270; J2405; J2704; J3010; J3490; A4209; A4452; A4930

== ENCOUNTER → 2021-11-20 | Outpatient (CLI) | payer MEDICAID ==
[~2021-11-20] MED LIST changes: +ASPI325T8 PO; +DOCU-109 PO; +DULO30CA44 PO; +HYDR-2761 PO; -HYDROmorphone 2 MG/ML INJ. IVP PRN; -IV RINGERS,LACTATED 1000ML 1,000 ML IV SCH; +LACT1CAP6 PO; +ONDA4TAB12 PO; +OXYC5CAP PO; +OXYC5TAB88 PO; +PRAZ1CAP2 PO; -PROCHLORPERAZINE 10 MG/2 ML VIAL. IVP PRN; +QUET400T4 PO; +VENTOLIN HFA18 GM INH; -ceFAZolin SODIUM 3 GM in IV DEXTROSE 5% 100ML 100 ML IV PRN; -fentaNYL PF VIAL 100 MCG/2 ML VIAL IVP PRN
== END ==
LOC: LAB 09:58
PROVIDERS: ATTEND Orthopaedic Surgery
DX: Z01.812 Encounter for preprocedural laboratory examination (principal); Z20.822 Contact with and (suspected) exposure to COVID-19
CPT/HCPCS: U0003

== ENCOUNTER 2021-11-22 06:43 | Day surgery (SDC) | payer MEDICAID ==
[~2021-11-22] VITALS: Ht 167.6 cm; Wt 116.8 kg
[~2021-11-22 06:43] MED LIST changes: -ASPI325T8 PO; -DOCU-109 PO; -ONDA4TAB12 PO; -OXYC5TAB88 PO
[2021-11-22] MEDS ORDERED: DEXAMETHASONE SOD PHOS 4 MG/ML VIAL ONE (08:11)
[2021-11-22] MEDS ORDERED: KETOROLAC 30 MG/ML VIAL. ONE (08:11)
[2021-11-22] MEDS ORDERED: PROPOFOL 10 MG/ML (20ML) VIAL. IV ONE (08:11)
[2021-11-22] MEDS ORDERED: fentaNYL PF VIAL 100 MCG/2 ML VIAL ONE (08:12)
[2021-11-22] MEDS ORDERED: FAMOTIDINE 20 MG/2 ML VIAL ONE (08:12)
[2021-11-22] MEDS ORDERED: OXYC5TAB88 PO (08:25)
[2021-11-22] MEDS ORDERED: DOCU-109 PO (08:25)
[2021-11-22] MEDS ORDERED: ONDA4TAB12 PO (08:25)
[2021-11-22] MEDS ORDERED: ASPI325T8 PO (08:25)
--- NOTE | 2021-11-22 08:26 | DISCH ---
DISCHARGE INSTRUCTIONS Condition on Discharge Condition on Discharge: Stable Activity After Discharge Activity Instructions for Disc: Resume previous activity, Activity as black ated, Avoid exertion Bathing Instructions: Shower-keep dressing dry, No Tub Bath until see Lifting Instructions after Dis: No heavy lifting Exercise Instruction after Dis: Walk 10 min, 3 x per day Driving Instructions after Dis: Do not drive today (while taking narcotic pain meds) Weight Bearing Status after Di: Full weight bearing (use crutches to aid with ambulation/prevent falls) Wound Incision Care Wound/Incision Care: Ice to area for comfort, Keep wound/cast CDI, Keep wound elevated Contacting the [facility] after DC Call your doctor for: If your condition worsens Follow-Up Follow up with: Ortho clinic in 1-2 weeks. Call to schedule. [phone] TYSON GARSIA November 22, 2021 08:26
[2021-11-22] MEDS ORDERED: BUPIVACAINE-EPI 0.25%-1:200000 MPF 30 ML VIAL. ONE (08:38)
[2021-11-22] MEDS ORDERED: SEVOFLURANE 31 TO 60 MINUTES. IH ONE (09:06)
--- NOTE | 2021-11-22 09:13 | PDOC4 ---
OPERATIVE NOTE Date: Date: November 22, 2021 Pre-Op Diagnosis: Medial meniscal tear with degenerative joint disease and laxity ACL left knee Post-Op Diagnosis: Same Procedure Performed: Left knee arthroscopy with partial medial meniscectomy joint debridement Surgeon: Otto Anesthesia Type: General Blood Loss: 20 cc Specimans Obtained: None Findings: See dictation Complications: None Operative Note: Patient taken operative suite given a general static left lower extremities placed in a knee stratton prepped and draped in a sterile fashion inferomedial inferolateral portals were established knee was insufflated with saline visua lization of the patellofemoral joint noted this to be intact with no significant damage there was some minor changes throughout the femoral sulcus but that nothing was unstable enough to be able to be debrided no loose bodies in this area. Proper tracking the patellofemoral joint was noted at this point. Scopes and taken into the medial compartment there were noted to be some small osteophytes and no loose bodies within the gutter. Scope was then taken to the medial compartment there was a partial meniscectomy done in the past and from that there was some changes within the meniscus along the area of the posterior horn along the area toward the corner. Small amount of debridement is undertaken of this area as well as especially anteriorly along the area of the soft tissue along the meniscus. Partial after the partial medial meniscectomy was completed the tibial and femoral sides of the joint were inspected there were no significant degenerative changes noted on the joint with throughout the arc of motion. The ACL was noted to be completely lax at this point and unstable PCL was completely intact scopes and taken into the lateral compartment which was noted be intact chondral surfaces were intact no loose bodies were noted in this region and the meniscus was probed and noted to be intact and stable. This was reinspected no new problems are noted therefore all instruments were removed and there is local placed within the portal sites the portal sites were then reapproximated in an interrupted fashion using 3-0 nylon sterile dressing was applied patient was then taken from the operative bed to the postoperative bed taken to the PACU in stable condition SARINA WERNER Jr. DO November 22, 2021 09:13
--- NOTE | 2021-11-22 09:40 | HP ---
DATE OF SERVICE: 11/22/2021 ADMIT DATE: 11/22/2021 PREOPERATIVE HISTORY AND PHYSICAL HISTORY OF PRESENT ILLNESS: She is here today for evaluation of her right knee. She previously underwent a left knee arthroscopy. She did have a right knee arthroscopy 07/01/2021, but was continuing to have left knee pain. She has already undergone left knee ACL reconstruction with the patella autograft and meniscectomy in the past and is now having significant increasing amounts of pain, which are unremitting and not responding to conservative therapies. She has already undergone an MRI examination of the knee as well. No history of recent issues other than of instability; however, she continues with pain. PAST MEDICAL AND SURGICAL HISTORY: Reviewed. PAST MEDICAL HISTORY: Remarkable for morbid obesity as well as anxiety. PAST SURGICAL HISTORY: Left knee arthroscopy with ACL reconstruction in 08/2016, right rotator cuff tear 04/15, right knee arthroscopy of 02/13, left knee debridement again and 04/29/2019, right knee arthroscopy 07/01/2021. FAMILY HISTORY: Noncontributory. SOCIAL HISTORY: The patient does use 11-22 cigarettes per day. No alcohol use. MEDICATIONS: Alprazolam, cetirizine, hydrochlorothiazide, quetiapine, indomethacin, and oxycodone in the past. MEDICATION ALLERGIES: None. PHYSICAL EXAMINATION: She is alert and oriented x 3. Her HEENT is within normal limits. Heart is of regular rate and rhythm. Abdomen is soft and nontender. The lower extremity examination reveals her to be a mild knee joint effusion in the left knee range of motion 0-120 degrees of flexion, pain with palpation of the medial compartment. Positive Apley's test of the medial compartment. Negative to the lateral compartment. There is some laxity of the anterior cruciate ligament, although there is an endpoint. Laxity is +2. Rotation causes significant increased pain to the medial compartment. There is some apprehension of the patellofemoral joint, which is mild. No atrophy of musculature. Distal neurovascular status is fully intact. IMPRESSION: Medial meniscal tear with degenerative joint disease, status post left knee anterior cruciate ligament reconstruction with laxity. PLAN: An evaluation with a partial medial meniscectomy as expected with joint debridement. We have gone over the risks, complications as well as benefits and expectations of surgery, postoperative protocol and followup. All questions were answered. We will proceed with the surgery as soon as she sees anesthesia and discusses that. BETH DR: Jennifer TID: [id number]
[2021-11-22] MEDS: fentaNYL PF VIAL 100 MCG/2 ML VIAL IVP PRN ×2 (09:42→10:01)
[2021-11-22] MEDS ORDERED: fentaNYL PF VIAL 100 MCG/2 ML VIAL IVP PRN (09:45)
[2021-11-22] MEDS ORDERED: HYDROmorphone 2 MG/ML INJ. IVP PRN (09:45)
[2021-11-22] MEDS ORDERED: IV RINGERS,LACTATED 1000ML 1,000 ML IV SCH (09:45)
[2021-11-22] MEDS ORDERED: PROCHLORPERAZINE 10 MG/2 ML VIAL. IVP PRN (09:45)
[2021-11-22] MEDS ORDERED: MORPHINE SULFATE 2 MG/ML INJ. IVP PRN (09:45)
[2021-11-22] MEDS ORDERED: ACETAMINOPHEN 325 MG TABLET. PO ONE ×2 (10:00→10:04)
[2021-11-22] MEDS ORDERED: oxyCODONE IR 5 MG TABLET PO ONE (10:00)
[2021-11-22] MEDS ORDERED: oxyCODONE IR 5 MG TABLET ONE (10:04)
[2021-11-22 10:25] VITALS: BP 105/63
== END 2021-11-22 10:40 | disposition home or self-care (01) ==
LOC: SURG 06:43
PROVIDERS: ATTEND Orthopaedic Surgery
DX: S83.242A Other tear of medial meniscus, current injury, left knee, initial encounter (principal); E66.01 Morbid (severe) obesity due to excess calories; F41.9 Anxiety disorder, unspecified; K21.9 Gastro-esophageal reflux disease without esophagitis; F32.9 Major depressive disorder, single episode, unspecified; M19.90 Unspecified osteoarthritis, unspecified site; F17.210 Nicotine dependence, cigarettes, uncomplicated; Z90.710 Acquired absence of both cervix and uterus; Z98.890 Other specified postprocedural states; Z79.899 Other long term (current) drug therapy; Z79.82 Long term (current) use of aspirin; Z91.040 Latex allergy status
CPT/HCPCS: 29881; A4930; J0690; J1100; J1885; J2704; J3010; J3490; A4223